=== PATIENT | male | born 1950 | race Caucasian/White ===

== ENCOUNTER → 2017-07-05 | Outpatient (CLI) | payer OTHER ==
--- NOTE | 2017-07-05 17:43 | CT ---
HISTORY: Calculus of kidney. Study: CT abdomen and pelvis without contrast Comparison: None. Technique: Multiple axial images of the abdomen and pelvis were obtained from the lung bases to the pubic symph ysis without the administration of IV contrast. Dose reduction techniques including Automated Expos ure Control (AEC) and adjustment of mA and kV were utilized. Findings: The visualized portions of the lung bases are unremarkable. Bilateral nonobstructing renal nephrolit hs. The kidneys are otherwise unremarkable. The liver, spleen, pancreas, and adrenal glands are unre markable in their CT appearance. The gallbladder is contracted with multiple calcified gallstones. N o secondary signs to suggest cholecystitis. No significant mesenteric lymphadenopathy or stranding can be observed. No free fluid or free air is seen within the abdomen. The visualized large and sm all bowel are collapsed. The large and small bowel otherwise appear normal. The appendix is normal. The bladder and prostate appear normal. Degenerative changes of the spine. The osseous structures o therwise appear normal for age. IMPRESSION: 1. No CT evidence of acute abdominal/pelvic pathology. 2. Bilateral renal nonobstructing nephroliths. 3. Other chronic findings as above. Reported By:
== END ==
LOC: RAD 11:19
PROVIDERS: ATTEND Internal Medicine
DX: N20.0 Calculus of kidney (principal)
CPT/HCPCS: 74176